=== PATIENT | male | born 1930 | race African-American/Black ===

== ENCOUNTER 2017-10-22 20:12 | Observation (INO) | payer MEDICARE ==
--- NOTE | 2017-10-22 20:26 | ED Physician Documentation ---
General Adult - HPI Stated Complaint: ALTERED MENTAL STATUS Chief Complaint: Altered Mental Status Onset: other (unknown) Timing: still present Severity: mild Further Comments: yes (Per the highway patrol obtained the pt from the highway for confusion and he was brought to the ER> The pt states he met a girl online and he was trying to travel from [place] (his stated home - his license says [place] ) to [place] to meet the girl but he could not [place] [address]. He states he is not confused but rather lost. He states he did not eat or drink all day yesterday or today. He has no headache. No other complaints. He is not sure when he left home. He does not think anyone knows where he is at this time.) Last known Well Code/Unknown Code: Unknown - ROS CONST: no problems EYES/ENT: none CVS/RESP: none GI/: none MS/SKIN/LYMPH: none NEURO/PSYCH: denies: headache, fainting, dizziness - PAST HX Past History: other (CADDO ) Allergies/Adverse Reactions: Allergies Allergy/AdvReac Type Severity Reaction Status Date / Time No Known Allergies Allergy Verified 10/22/17 20:25 Home Medications: Ambulatory Orders Medication Instructions Recorded Aspirin [Razia] 81 mg PO DAILY 10/22/17 Lisinopril [Prinivil] 20 mg PO QD 10/22/17 Tamsulosin HCl [Flomax] 0.4 mg PO [id number] 10/22/17 - SOCIAL HX Smoking History: non-smoker Alcohol Use: none Drug Use: none - FAMILY HX Family History: No - VITAL SIGNS Vital Signs: Vital Signs Temp Pulse Resp BP Pulse Ox 98.4 F 86 18 174/107 95 10/22/17 20:14 10/22/17 20:14 10/22/17 20:14 10/22/17 20:14 10/22/17 20:14 - REVIEWED ASSESSMENTS Nursing Assessment Reviewed: Yes Vitals Reviewed: Yes General Adult Physical Exam - PHYSICAL EXAM GENERAL APPEARANCE: no distress EENT: eye inspection normal, no signs of dehydration, other (left eye is non fuctional ) NECK: normal inspection RESPIRATORY: no resp distress, chest non-tender, breath sounds normal CVS: reg rate & rhythm, heart sounds normal, equal pulses, no murmur ABDOMEN: soft, normal bowel sounds, no distension, non-tender RECTAL: normal exam BACK: normal inspection, no CVA tenderness EXTREMITIES: non-tender, normal range of motion, no evidence of injury, no edema NEURO: mood/affect nml, other (he is not sure where he is location [place]. He feels today is Sat. ) Discharge Clincal Impression: Hyperpotassemia Condition: Fair Disposition: ADMITTED INPATIENT Decision to Admit: [id number] Date of Decison to Admit: 10/22/17 Decision Time: 22:41
[2017-10-22] MEDS ORDERED: 0.9 % SODIUM CHLORIDE 1,000 ML IV ONE ×2 (20:27→23:58)
[2017-10-22] MEDS: 0.9 % SODIUM CHLORIDE 1,000 ML IV SCH (20:40)
[2017-10-22 20:58] LABS: BASOPHILS % 0.2 (0.0-1.5); EOSINOPHILS % 1.8 % (0.0-6.8); MEAN CORPUSCULAR HEMOGLOBIN 28.8 pg (28.0-34.0); MEAN CORPUSCULAR VOLUME 91.3 fl (80.0-100.0); MONOCYTES % 5.3 % (0.0-11.0); NEUTROPHILS # 8.3 # k/uL (1.4-7.7)
[2017-10-22 21:23] LABS: eGFR (African) > 60; eGFR (Non-African) 51
--- NOTE | 2017-10-22 21:31 | Diagnostic Imaging Report ---
[facility] [address] [facility] [address] [place], [place]. [address] Report Submission Date: Oct 22, 2017 9:26:56 PM CDT Patient Study Name: AMAIRANI GAO Date: Oct 22, 2017 9:09:00 PM CDT Modality Type: CT\SR Gender: M Description: CT BRAIN W/O CONTRAST : 32 Institution: [facility] Physician: SARAH BAI - CONY CT Brain without Contrast History: Altered mental status. Technique: Transaxial CT was performed without contrast from the skull base to the vertex. Findings: Scattered bilateral white matter hypodensity is present, consistent with gliosis. 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 There is also evidence of old left basal ganglia lacunar infarct. Mild cerebral atrophy is present. The lateral ventricles are mildly dilated. No hemorrhage or edema-producing mass. The fourth ventricle is midline. The paranasal sinuses are clear. No skull fracture. The mastoid air cells are well developed and well aerated. Left globe is atrophic Impression: 1. Mild cerebral atrophy and periventricular white matter change. 2. 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 Electronically signed on Oct 22, 2017 9:26:56 PM CDT by: Gerardo BRISCOE
[2017-10-23] MEDS: 0.9 % SODIUM CHLORIDE 1,000 ML IV SCH (00:02)
[2017-10-23] MEDS ORDERED: TAMSULOSIN HCL 0.4 MG CAP.ER.24H PO SCH ×2 (00:03→18:00)
[2017-10-23] MEDS ORDERED: LISINOPRIL 20 MG TABLET PO SCH ×2 (00:03→09:00)
[2017-10-23] MEDS ORDERED: 0.9 % SODIUM CHLORIDE 1,000 ML IV SCH (00:03)
[2017-10-23 00:34] VITALS: BMI 25.9
[2017-10-23] MEDS ORDERED: LISINOPRIL 20 MG TABLET ONE (00:52)
[2017-10-23] MEDS ORDERED: ASPIRIN EC 81 MG TABLET.DR ONE (01:13)
[2017-10-23 08:04] LABS: BASOPHILS % 0.4 (0.0-1.5); EOSINOPHILS % 7.3 % (0.0-6.8); MEAN CORPUSCULAR HEMOGLOBIN 28.4 pg (28.0-34.0); MEAN CORPUSCULAR VOLUME 95.3 fl (80.0-100.0); MONOCYTES % 5.7 % (0.0-11.0); NEUTROPHILS # 5.5 # k/uL (1.4-7.7)
[2017-10-23 08:06] LABS: eGFR (African) > 60; eGFR (Non-African) > 60
[2017-10-23 08:31] VITALS: BP 145/93
[2017-10-23 08:35] LABS: CANNABINOIDS NEGATIVE ng/mL (< 50); METHYLENEDIOXYMETHAMPHETAMINE NEGATIVE ng/mL (<500)
[2017-10-23 08:40] LABS: APPEARANCE,URINE CLEAR (CLEAR); COLOR,URINE AMBER (YELLOW); OCCULT BLOOD,URINE 2+ (NEGATIVE); PH URINE 5.5 (5.0 - 8.0); UROBILINOGEN URINE 0.2 Eu (0.2-1.0)
[2017-10-23] MEDS ORDERED: ASPIRIN 81 MG CHEW TAB PO SCH (09:00)
--- NOTE | 2017-12-04 15:48 | Discharge Summary ---
Discharge Summary - Discharge Sumary History of Present Illness: Patient was admitted through the ER with hyperkalemia and confusion. Patient was brought in by PD, [place] on [address] [place] and driving [address]. Patient agreed to over night observation stay. Today, patient is AAOx3, demanding to be able to leave. K 3.8 this morning. Patient ate breakfast, has been walking in the [place]. Condition at Discharge: Stable Home Medications: Ambulatory Orders Medication Instructions Recorded Aspirin [Razia] 81 mg PO DAILY 10/22/17 Lisinopril [Prinivil] 20 mg PO QD 10/22/17 Tamsulosin HCl [Flomax] 0.4 mg PO [id number] 10/22/17 Consultations this Visit: None Procedures this Visit: None Allergies/Adverse Reactions: Allergies Allergy/AdvReac Type Severity Reaction Status Date / Time No Known Allergies Allergy Verified 10/22/17 20:25 - Final Diagnosis (1) Hyperpotassemia Problems: Resolved
== END 2017-10-23 09:25 | disposition home or self-care (01) ==
LOC: ED 20:12 → INTOOBSV 22:31 → SOUTH 22:31
PROVIDERS: ADMIT Nurse Practitioner Family; ATTEND Nurse Practitioner Family
DX: E87.5 Hyperkalemia (principal)
CPT/HCPCS: 36415; 70450; 80053; 81002; 85025; 85610; 93005; G0378; G0480; G0481; J7030; 80320; 80377; 96365; 96366; 99217; 99219; G0379; S1016